=== PATIENT | male | born 1950 | race Caucasian/White ===

== ENCOUNTER 2020-10-24 08:46 | Emergency (ER) | payer MEDICARE, SELFPAY ==
[2020-10-24 08:56] VITALS: BP 161/87; PULSE 86; RESP 20; TEMP 36.7; O2SAT 100
--- NOTE | 2020-10-24 08:57 | ED.SKABFB ---
HPI - Skin/Abscess/Foreign Bdy General Chief complaint: Wound/Laceration Stated complaint: itchy middle of back Time Seen by Provider: 10/24/20 08:57 Source: patient and RN notes reviewed History of Present Illness HPI narrative: Patient is a 69-year-old male who presents the urgent care with complaints of a tick on his back. Patient states is been there for possibly 3 days but he is unsure. Patient states that he has been itching it on the wall and noticed that there was something hanging there today . Patient denies of any recent fevers, body aches, chills, fatigue. Patient states that he has had some intermittent body aches since the Covid shot 3 weeks ago but nothing new. Patient currently denies of any pain. Denies of any use of [id number] medications for his current complaint. No other acute complaints. No acute distress noted. Patient aware of the plan of care. Some parts of this dictation were generated by voice recognition software and may contain typographical and/or grammatical inaccuracies. Related Data Allergies Allergy/AdvReac Type Severity Reaction Status Date / Time No Known Allergies Allergy Verified 10/24/20 09:09 Review of Systems Review of Systems: Narrative: CONSTITUTIONAL: Denies fever, chills, or sweats. EYES: Denies visual changes, redness, or discharge. ENT: Denies rhinorrhea, congestion, sore throat, or otalgia. CARDIOVASCULAR: Denies chest pain, palpitations, or edema. RESPIRATORY: Denies cough or dyspnea. GASTROINTESTINAL: Denies abdominal pain, nausea, vomiting, or diarrhea. GENITOURINARY: Denies dysuria or hematuria. SKIN: Reports of a tick on his back MUSCULOSKELETAL: Denies back pain, joint pain, or myalgia. NEUROLOGIC: Denies headache, numbness, or weakness. All other systems reviewed are negative, except as documented in HPI. PMFSH Comments At the time of my signature, I reviewed and agree with the nursing past medical, surgical, social, and family history. There is no relevant family history pertinent to the patient complaint. Exam Narrative: Exam Narrative: GENERAL: This is a well-nourished, well-developed patient, in no apparent distress. HEAD: normocephalic, atraumatic. EYES: PERRL. Sclera clear/white. Vision is grossly intact. EARS: External ears normal NOSE: External nose normal with no obvious nasal discharge, nares without redness, no rhinorrhea. THROAT: Mucous membranes moist NECK: Neck supple CARDIOVASCULAR: Regular rate and rhythm without murmurs, gallops, or rubs. RESPIRATORY: Clear to auscultation. Breath sounds equal bilaterally. No wheezes, rales, or rhonchi. SKIN: Enlarged tick located to the mid back NEURO: awake, alert, and oriented to person, place and time. There were no obvious focal neurologic abnormalities. EXTREMITIES: No clubbing, cyanosis, or edema. Course Vital Signs Vital signs: Vital Signs Temperature 98.1 F 10/24/20 08:56 Pulse Rate 86 10/24/20 08:56 Respiratory Rate 20 10/24/20 08:56 Blood Pressure 161/87 H 10/24/20 08:56 Pulse Oximetry 100 10/24/20 08:56 Temperature 98.1 F 10/24/20 08:56 Pulse Rate 86 10/24/20 08:56 Respiratory Rate 20 10/24/20 08:56 Blood Pressure 161/87 H 10/24/20 08:56 Pulse Oximetry 100 10/24/20 08:56 Reviewed-patient is informed that they may have pre-hypertension or hypertension based on a blood pressure reading in the department. I recommend the patient call the primary care provider listed on their discharge instructions or a physician of their choice this week to arrange follow-up for further evaluation of possible pre-hypertension or hypertension. Procedures Foreign Body Removal Foreign Body #1: Site: other (Mid back) Description of foreign body: insect (Tech) Sedation/Analgesia: none Technique: other (Tweezers/hemostat) Confirmed by:: direct visualization Complications: none Post-procedure exam: awake, alert Neurovascular: no c
== END 2020-10-24 09:25 | disposition home or self-care (01) ==
PROVIDERS: Emergency Provider Nurse Practitioner Family; PCP Internal Medicine
DX: S20.469A Insect bite (nonvenomous) of unspecified back wall of thorax, initial encounter (principal); W57.XXXA Bitten or stung by nonvenomous insect and other nonvenomous arthropods, initial encounter
CPT/HCPCS: 99203; G0463